=== PATIENT | female | born 1995 | race Caucasian/White ===

== ENCOUNTER 2017-11-16 16:30 | Emergency (ER) | payer OTHER ==
[~2017-11-16] VITALS: Ht 162.6 cm; Wt 136.1 kg
[2017-11-16 17:14] LABS: ABSOLUTE BASOPHIL COUNT 0.1 /CUMM (0.0-0.2); ABSOLUTE EOSINOPHIL COUNT 0.2 /CUMM (0.0-0.7); ABSOLUTE GRANULOCYTE CT 5.9 /CUMM (1.4-6.5); ABSOLUTE LYMPH COUNT 3.2 /CUMM (1.2-3.4); ABSOLUTE MONOCYTE COUNT 0.7 /CUMM (0.10-0.60); BASOPHIL % 1.1 % (0.0-2.0); EOSINOPHIL % 1.8 % (0-5); GRANULOCYTE % 58.6 % (42.2-75.2); HEMATOCRIT 40.8 % (37-47); MEAN CORPUSCULAR HGB 31.6 PG (27.0-31.0); MEAN CORPUSCULAR HGB CONC 34.3 G/DL (33.0-37.0); MEAN CORPUSCULAR VOLUME 92.3 FL (81.0-99.0); MEAN PLATELET VOLUME 8.5 FL (7.4-10.4); PLATELET COUNT 236 /CUMM (130-400); RBC DISTRIBUTION WIDTH 12.8 % (11.5-14.5); RED BLOOD CELL CT 4.43 /CUMM (4.20-5.40); WHITE BLOOD CELL COUNT 10.1 /CUMM (4.8-10.8)
--- NOTE | 2017-11-16 18:05 | RADIOLOGY REPORT ---
EXAMINATION: XR CHEST CLINICAL INFORMATION: Left-sided chest. Evaluate for cardiopulmonary process. COMPARISON: No relevant prior imaging. TECHNIQUE: 2 views of the chest were obtained. FINDINGS: Lung volumes are low. There is no overt consolidative disease , pleural effusion, or pneumothorax. The cardiac silhouette and upper mediastinal contours are normal. No acute osseous finding. IMPRESSION: Unremarkable chest radiograph. No consolidative disease or effusion.
--- NOTE | 2017-11-16 19:27 | ED GENERAL ADULT ---
History of Present Illness General Chief Complaint: General Adult Stated Complaint: NAUSEA, PAIN L BREAST Source: patient Exam Limitations: no limitations Vital Signs & Intake/Output Vital Signs & Intake/Output Vital Signs Date Time Temp Pulse Resp B/P B/P Pulse O2 O2 Flow FiO2 Mean Ox Delivery Rate 11/16 1948 Room Air 11/16 1946 98.4 99 16 163/94 99 Room Air 11/16 1641 98.4 106 18 155/109 98 Room Air Allergies Coded Allergies: Penicillins (Intermediate, HIVES 11/16/17) cefaclor (Intermediate, HIVES 11/16/17) tramadol (Intermediate, "BODY NUMB" 11/16/17) Reconcile Medications Meloxicam (Mobic) 15 MG TABLET 1 TAB PO DAILY PRN pain Triage Note: 22 YO FEMALE TO TRIAGE FOR EVAL OF L SIDE PAIN UNDER L ARMPIT AND +NAUSEA. REPORTS THIS HAS BEEN GOING ON SINCE JUNE AND HAS BEEN ON/OFF. REPRORTS WAS SEEN AT [facility] AND HAD AN EKG WHICH WAS NORMAL, WAS TOLD IT WAS A PULLED MUSCLE. REPORTS PAIN HAS BEEN NO BETTER. Triage Nurses Notes Reviewed? yes Onset: Gradual Duration: week(s): Timing: recent history : No Patient currently breastfeeds: No HPI: 22-year-old female presents emergency department complaining of left lateral breast pain for the past few months. Patient states that breast pain is intermittent. Patient was seen at [facility] for this pain in June, she had EKG done which was normal. Patient states that they told her she likely had [place] ligament sprain. Patient has also seen her ASSISTANT PROFESSOR OF ANTHROPOLOGY for this pain and had normal breast exam. Patient reports nausea which started this morning however she notes that she ate [place] food last night and believes this is related. She denies vomiting, dyspnea, injury. (Krysta Bull) Past History Travel History Traveled to [place] past 21 day No Medical History Any Pertinent Medical History? none Neurological: NONE EENT: NONE Cardiovascular: NONE Respiratory: NONE Gastrointestinal: NONE Hepatic: NONE Renal: NONE Musculoskeletal: NONE Psychiatric: NONE Endocrine: NONE Blood Disorders: NONE Cancer(s): NONE KILN CLEANER/Reproductive: NONE Surgical History Surgical History: non-contributory Psychosocial History What is your primary language Yi Tobacco Use: Quit >30 days ago Family History Hx Contributory? No (Krysta Bull) Review of Systems Review of Systems Constitutional: Reports: no symptoms. EENTM: Reports: no symptoms. Respiratory: Reports: see HPI. Cardiovascular: Reports: no symptoms. GI: Reports: see HPI. Genitourinary: Reports: no symptoms. Musculoskeletal: Reports: no symptoms. Skin: Reports: no symptoms. Neurological/Psychological: Reports: no symptoms. Hematologic/Endocrine: Reports: no symptoms. Immunologic/Allergic: Reports: no symptoms. All Other Systems: Reviewed and Negative (Radha PEREZ,Krysta Farfan) Physical Exam Physical Exam General Appearance: well developed/nourished, no apparent distress, alert, awake Head: atraumatic, normal appearance Eyes: Bilateral: normal appearance. Ears, Nose, Throat: hearing grossly normal Neck: normal inspection, supple, full range of motion Respiratory: normal breath sounds, no respiratory distress, lungs clear, left lateral breast tenderness Cardiovascular: regular rate/rhythm Gastrointestinal: normal bowel sounds, soft, non-tender, no organomegaly Back: normal inspection, normal range of motion Extremities: normal inspection, normal range of motion Neurologic/Psych: awake, alert, oriented x 3 Skin: intact, normal color, warm/dry Core Measures ACS in differential dx? No CVA/TIA Diagnosis: No Sepsis Present: No Sepsis Focused Exam Completed? No (Radha PEREZ,Krysta Farfan) Progress Differential Diagnoses I considered the following diagnoses in my evaluation of the patient: [Muscle strain, abscess, cyst, PE, gastroenteritis] Plan of Care: Orders Procedure Date/time Status TROPONIN LEVEL 11/16 165 Complete D-DIMER 11/16 1654 Complete COMPREHENSIVE METABOLIC PANEL 11/16 1654 Complete CBC WITHOUT DIFFERENTIAL 11/16 1654 Complete EKG 11/16 1642 Active URINE 11/16 1640 Complete URINALYSIS 11/16 1640 Complete Laboratory Tests 11/16/17 1715: Urine Color YEL, Urine Clarity CLEAR, Urine pH 6.0, Ur Specific Mineral >= 1.030 , Urine Protein NEG, Urine Ketones NEG, Urine Nitrite NEG, Urine Bilirubin NEG, Urine Urobilinogen 0.2, Ur Leukocyte Esterase NEG, Ur Microscopic EXAM NOT REQUIRED, Urine Hemoglobin NEG, Urine Glucose NEG, Urine Test NEGATIVE 11/16/17 1705: Anion Gap 10, Estimated GFR > 60, BUN/Creatinine Ratio 12.9, Glucose 86, Calcium 10.1, Total Bilirubin 0.7, AST 25, ALT 36, Alkaline Phosphatase 76, Troponin I < 0.01, Total Protein 7.1, Albumin 4.2, Globulin 2.9, Albumin/Globulin Ratio 1.4, D-Dimer High Sensitivty < 200, CBC w Diff NO MAN DIFF REQ, RBC 4.43, MCV 92.3, MCH 31.6 H, MCHC 34.3, RDW 12.8, MPV 8.5, Gran % 58.6, Lymphocytes % 32.0, Monocytes % 6.5, Eosinophils % 1.8, Basophils % 1.1, Absolute Granulocytes 5.9, Absolute Lymphocytes 3.2, Absolute Monocytes 0.7 H, Absolute Eosinophils 0.2, Absolute Basophils 0.1 Patient reports her nausea has resolved following by mouth Zofran. EKG shows sinus tachycardia, patient endorses feeling anxious during the time of EKG. No tachycardia on physical exam. D-dimer is negative, low suspicion for PE at this time. Remainder patient's labs are stable, troponin negative. Patient's symptoms are reproducible on physical exam, likely related to muscle versus ligament injury rather than cardiac pathology. Patient to follow up with her primary care doctor and her ASSISTANT PROFESSOR OF ANTHROPOLOGY. The patient is in no acute distress, nontoxic appearing, vital signs are stable. She agrees with this plan. Diagnostic Imaging: Viewed by Me: Radiology Read. Discussed w/RAD: Radiology Read. Radiology Impression: PATIENT: RENÉ ESCUDERO PRESENT AGE: 22 PATIENT ACCOUNT NO: [id number] : 93 LOCATION: [facility] ORDERING PHYSICIAN: Krysta PEREZ SERVICE DATE: 11/16/17 EXAM TYPE: RAD - XRY-CHEST XRAY, TWO VIEWS EXAMINATION: XR CHEST CLINICAL INFORMATION: Left-sided chest. Evaluate for cardiopulmonary process. COMPARISON: No relevant prior imaging. TECHNIQUE: 2 views of the chest were obtained. FINDINGS: Lung volumes are low. There is no overt consolidative disease , pleural effusion, or pneumothorax. The cardiac silhouette and upper mediastinal contours are normal. No acute osseous finding. IMPRESSION: Unremarkable chest radiograph. No consolidative disease or effusion. DICTATED BY: Juan DIAZ,Chris Burgess DATE/TIME DICTATED:11/16/171800 SOCCER COMMENTATOR:ELIZABET DATE/TIME TRANSCRIBED:1800 CONFIDENTIAL, DO NOT COPY WITHOUT APPROPRIATE AUTHORIZATION. < Electronically signed in Other Vendor System> SIGNED BY: Chris Martinez MD 11/16/17 8825 Initial ED EKG: sinus tachycardia @113bpm, nonspecific ST changes (Krysta Bull) Departure Departure Disposition: HOME OR SELF CARE Condition: Stable Clinical Impression Primary Impression: Breast pain Secondary Impressions: Nausea Referrals: Patient Has No Primary Care Dr (PCP/Family) Additional Instructions: Take meloxicam as prescribed as needed for pain and inflammation. Follow-up with your primary care doctor in your ASSIST[employer] PROFESSOR OF ANTHROPOLOGY. Return if any worsening symptoms or concerns. Please note that there might be incidental findings in your evaluation that are unrelated to the current emergency department visit. Please notify your primary care doctor about this emergency department visit in order to obtain and review all of the testing performed so that these incidental findings can be monitored as needed. If you had an x-ray performed, please understand that some fractures may not be seen on the initial set of x-rays. If your symptoms persist you might need a repeat set of x-rays to check for such a fracture. If you had a laceration evaluated, please understand that foreign bodies such as glass or wood may not be visible to the naked eye or on plain x-rays. If the wound becomes red, swollen, increasingly more painful or if there is any drainage from the wound, please have it reevaluated by a physician for the possibility of a retained foreign body. If you're unable to follow up as outlined in the discharge instructions please return to the emergency department. Thank you for choosing the [facility] Emergency Department for your care. It was a pleasure to serve you today. Departure Forms: Customer Survey General Discharge Information Prescriptions: Current Visit Scripts Meloxicam (Mobic) 1 TAB PO DAILY PRN pain #20 TAB (Krysta Bull) PA/DB2 DBA Co-Sign Statement Statement: ED Attending supervision documentation- I saw and evaluated the patient. I have also reviewed all the pertinent lab results and diagnostic results. I agree with the findings and the plan of care as documented in the PA's/DB2 DBA's documentation. x I have reviewed the ED Record and agree with the PA's/DB2 DBA's documentation. [] Additions or exceptions (if any) to the PAs/DB2 DBA's note and plan are summarized below: [] (Griffin DIAZ,Abner) Critical Care Note Critical Care Note Critical Care Time: non-applicable (Radha PEREZ,Krysta Farfan)
[2017-11-16 19:47] VITALS: BP 163/94
[2017-11-16] MEDS ORDERED: MOBIC15 M1 PO (19:59)
== END 2017-11-16 20:34 ==
LOC: ERH 16:30
PROVIDERS: Emergency Medicine
DX: N64.4 Mastodynia (principal); R11.0 Nausea
CPT/HCPCS: 71046; 81003; 81025; 93005; 93010; J3101